=== PATIENT | male | born 1985 | race Caucasian/White ===

== ENCOUNTER 2023-10-06 16:55 | Emergency (ER) | payer SELFPAY ==
[2023-10-06 17:24] VITALS: BP 149/90
[2023-10-06 19:35] VITALS: BMI 27.4
[2023-10-06 19:53] LABS: Urine Albumin Negative (Neg - Trace); Urine Bilirubin Negative (Negative); Urine Character Clear (Clear); Urine Color Yellow; Urine Glucose Negative (Negative); Urine Ketone Negative (Negative); Urine Leukocyte Trace (Negative); Urine Nitrite Negative (Negative); Urine Occult Blood Negative (Negative); Urine Urobilinogen Negative (Neg - 1+); Urine pH 6.5 (5.0-9.0)
--- NOTE | 2023-10-06 20:04 | ED.GENMED ---
History of Present Illness
General
Chief Complaint: Male Genito-Urinary Symptoms
Source: patient
Time Seen by Provider: 10/06/23 17:57
Travel History
Have you had any contact with someone who has COVID-19?: No
Do you have any symptoms of coronavirus? Fever > 100 degrees, chills, cough, shortness of breath, sore throat, loss of taste or smell, muscle aches, or headache?: No
History of Present Illness
History of Present Illness:
38-year-old male with past medical history of hypertension, previous testicular torsion presenting to the emergency department for evaluation of left-sided testicular swelling and pain that started on Monday, acutely worse today prompting him to
come to the ER for further evaluation. Patient denies any urinary symptoms including dysuria, frequency, urgency, hematuria. He denies any scrotal or testicular trauma. He does note that he is sexually active with 1 female partner. Stay has oral
intercourse, vaginal intercourse and oral intercourse. He does not have concern for STI. He denies any vomiting, bowel changes or any other concerns.
Past History
Past History
ED Past Medical History: HTN, Other (Migraines) and Other (Perirectal/buttock abscess)
ED Past Surgical History: None
Social History
Tobacco: Smoker
Alcohol: Occasional
Drug: None
Personal: Single
Living: alone
Employment: Employed
Family History
Family History: Other (non contributory)
Review of Systems
Review of Systems
All Other Systems: ROS reviewed and negative except as documented in HPI and ROS
Phy Exam
Physical Exam
Physical Exam:
GENERAL: Alert , in no apparent distress
EYE: conjunctiva clear
Head: Normocephalic atraumatic
NECK: Supple,
ENT: mmm.
LUNGS: no acute respiratory distress
Genitourinary: Significant edema to the left testicle with tenderness over the epididymis and testicle itself. There appears to be a moderate-sized hydrocele as well. Positive cremasteric reflex bilateral. No hernias appreciated
NEUROLOGICAL: Alert and oriented
SKIN: Warm and dry, skin intact.
MUSCULOSKELETAL: well perfused.
PSYCH: Normal and appropriate interaction.
Scores
Heart Failure Risk
Heart Failure Risk Score: Not Applicable
Heart Score for Chest Pain Patients
STEMI patient?: Not applicable
Withdrawal Assessment of Alcohol
Withdrawal Assessment Completed?: Not applicable
Course
Orders/Labs/Results
Orders:
Orders
10/06/23 17:28
US Scrotum Urgent
Comment:
Reason For Exam: torsion
10/06/23 19:36
Urinalysis Reflex To Culture Urgent
Date Specimen was Collected: 10/06/23
Time Specimen was Collected: 19:32
Urine Microscopic Reflex Cult Urgent
Chlamydia/GC by PCR Urgent
BRAXTON Source: Urine
Specimen Description:
Source:: URINE
Date Specimen was Collected: 10/06/23
Time Specimen was Collected: 19:32
10/06/23 20:05
CefTRIAXone [Rocephin] 500 mg IM NOW STA
LevoFLOXacin [Levaquin] 500 mg PO NOW STA
Abnormal Lab Results
10/06/23
19:36
Leukocyte Esterase Rfl Trace A
(Negative)
Vital Signs
Initial and Last Documented VS:
Initial Vital Signs
Temp Pulse Resp BP Pulse Ox
98.3 F 120 20 149/90 98
10/06/23 17:24 10/06/23 17:24 10/06/23 17:24 10/06/23 17:24 10/06/23 17:24
Last Documented Vital Signs
Temp Pulse Resp BP Pulse Ox
98.3 F 120 20 149/90 98
10/06/23 17:24 10/06/23 17:24 10/06/23 17:24 10/06/23 17:24 10/06/23 17:24
MDM/Problems Addressed
Differential Diagnosis Includes:
Epididymitis, orchiditis, testicular torsion, hydrocele, urinary tract infection, sexually transmitted infection
MDM/Problems Addressed:
38-year-old male present emergency department for evaluation of left-sided testicular edema and pain. History of torsion in the past. Based off exam I feel torsion is less likely and more likely epididymitis versus orchiditis. Patient is adamant
he is only sexually active with 1 female partner. He is at increased risk for urinary tract infection based off of anal intercourse. Will check a scrotal ultrasound in addition to urinalysis as well as GC/chlamydia
*Radiology
Radiology exam reviewed: radiology read reviewed
*Pulse Oximetry
Patient hypoxic: no
*Critical Care Note
Total Time (30-74mins, 75-104mins- exclusive of procedures): Not Applicable
Patient Management
Escalation/DeEscalation of care consider admission/obs:
Ultrasound shows left epididymoorchitis, there is a large complex left hydrocele as well. Based off of the findings we will treat patient with Rocephin 500 mg IM and Levaquin 500 mg p.o. x 10 days. Patient provided with information for urology
outpatient follow-up. Aware of return precautions. Aware that he needs to abstain from intercourse until results of STI testing are known.
ED Attending Note
-
Portions of this chart may have been created with voice recognition software.� Occasional wrong word or��sound alike� substitutions may have occurred due to the inherent limitations of voice recognition software.
Discharge Plan
Departure
Patient Disposition: Home (Routine Discharge)
Date of Disposition: 10/06/23
Time of Disposition: 20:04
Patient with high blood pressure during this ER visit?: No
Discharge Problem:
Epididymo-orchitis, acute, Hydrocele
Instructions: Epididymitis (DC)
Prescriptions:
New
levofloxacin 500 mg tablet
500 mg PO DAILY 9 Days Qty: 9 0RF
No Action
Clindamycin Hcl 300 MG Capsule
300 mg PO QID 10 Days Qty: 40 0RF
Referrals:
NONE,* [Family Provider] -
Marin Boogie Jr., MD [Active] - (Urology)
Interventions
Interventions:
*Risk Screen - Suicide Last Done: 10/06/23 17:24
*General Assessment Last Done: 10/06/23 17:24
*Neglect/Abuse Screening Last Done: 10/06/23 19:35
*ED COVID-19 Vaccine History Last Done: 10/06/23 19:35
ED-Male Genitourinary Assessment Last Done: 10/06/23 19:35
[2023-10-06 20:19] LABS: Urine Bacteria Few (Negative); Urine Red Blood Cell 0-2 /HPF (0-2)
[2023-10-06] MEDS: ROCEPHIN 500 MG IM (20:44)
[2023-10-06] MEDS: LEVAQUIN 500 MG PO (20:44)
[2023-10-06 20:52] VITALS: BP 130/65
== END 2023-10-06 20:56 | disposition home or self-care (01) ==
LOC: EMR 16:55
PROVIDERS: Physician Assistant Medical; EMERGENCY PHYSICIAN Emergency Medicine
DX: N45.3 Epididymo-orchitis (principal); N43.3 Hydrocele, unspecified
CPT/HCPCS: 99284; 96372; 76870; 81003; 81015; 87086; 87491; 87591; 93976

== ENCOUNTER 2023-10-12 10:05 | Emergency (ER) | payer SELFPAY ==
[2023-10-12 10:13] VITALS: BP 154/95
[2023-10-12 10:23] LABS: % Basophils 0.3 % (0-2); % Eosinophils 0.2 % (0-6); % Immature Granulocytes 0.6 % (0-0.5); % Lymphocytes 8.3 % (20.5-51.1); % Monocytes 4.5 % (1.7-9.3); % Neutrophils 86.1 % (42.2-75.2); Absolute Basophils 0.1 10^3/uL (0-0.2); Absolute Immature Granulocytes 0.2 10^3/uL (0-0.05); Absolute Monocytes 1.1 10^3/uL (0.1-0.6); Absolute Neutrophils 20.4 10^3/uL (1.4-6.5); Hematocrit 45.5 % (39.0-52.0); Hemoglobin 15.9 g/dL (13.0-18.0); Mean Corp Hgb Conc. 34.9 g/dL (33.0-37.0); Mean Corpuscular Hgb 30.4 pg (27.0-31.0); Mean Platelet Volume 8.4 fL (7.4-10.4); Nucleated Red Blood Cells % 0 % (-); Platelet Count 414 10^3/uL (130-400); Red Blood Cell Count 5.23 10^6/uL (4.70-6.10); White Blood Cell Count 23.7 10^3/uL (4.8-10.8)
[2023-10-12 10:52] LABS: ALT (SGPT) 24 U/L (0-50); AST (SGOT) 24 U/L (17-59); Albumin 4.3 g/dl (3.5-5.0); Alkaline Phosphatase 100 U/L (38-126); Blood Urea Nitrogen 9 mg/dl (9-20); Calcium 9.3 mg/dl (8.4-10.2); Carbon Dioxide 27 mmol/L (22-30); Chloride 104 mmol/L (98-107); Glucose 102 mg/dl (70-99); Lipase 55 U/L (23-300); Sodium 135 mmol/L (135-145); Total Bilirubin 0.7 mg/dl (0.2-1.3); eGFR > 60.00
[2023-10-12] MEDS: NSS 1000 IV (11:23)
[2023-10-12] MEDS: TORADOL 15 MG IV (11:23)
[2023-10-12 11:24] VITALS: BMI 25.8
--- NOTE | 2023-10-12 11:40 | ED.GENMED ---
History of Present Illness
General
Chief Complaint: Abdominal Pain
Source: patient and spouse
Exam Limitations: none
Time Seen by Provider: 10/12/23 10:50
Nursing documentation reviewed up to this point in time: agreed with
Travel History
Have you had any contact with someone who has COVID-19?: No
Do you have any symptoms of coronavirus? Fever > 100 degrees, chills, cough, shortness of breath, sore throat, loss of taste or smell, muscle aches, or headache?: No
History of Present Illness
History of Present Illness:
38-year-old male with past medical history of anxiety hypertension presenting to the emergency department today with concerns of left lower quadrant abdominal pain worsening over the past 2 days recently was seen and diagnosed with epididymo
orchitis and was started on clindamycin and levofloxacin. He has been taking his medications but has not had significant improvement now he is feeling worsening discomfort into the abdomen. Also had nausea no vomiting. No chest pain shortness of
breath fevers
Past History
Past History
ED Past Medical History: HTN, Other (Migraines) and Other (Perirectal/buttock abscess)
ED Past Surgical History: None
Social History
Tobacco: Smoker
Alcohol: Occasional
Drug: None
Personal: Single
Living: alone
Employment: Employed
Family History
Family History: Other (non contributory)
Review of Systems
Review of Systems
Allergies reviewed?: Yes
All Other Systems: ROS reviewed and negative except as documented in HPI and ROS
Phy Exam
Physical Exam
Physical Exam:
GENERAL: Alert , in no apparent distress
EYE: pupils equal and reactive
NECK: Supple, no significant adenopathy.
ENT: o/p clr, mmm.
CARDIAC: Regular rate and rhythm .
LUNGS: Clear breath sounds bilaterally, no acute respiratory distress, no wheezes/rales/rhonchi
ABDOMEN: Tender palpation to the left lower abdomen otherwise soft, without focal tenderness, no r/g, no cvat, scrotal examination with swelling and discomfort to the left scrotum
NEUROLOGICAL: Alert and oriented, no focal neuro deficits
SKIN: Warm and dry, skin intact.
MUSCULOSKELETAL: No edema, well perfused.
PSYCH: Normal and appropriate interaction.
Course
Orders/Labs/Results
Orders:
Orders
10/12/23 10:18
Complete Blood Count/With Diff Urgent
Comprehensive Metabolic Panel Urgent
Lipase Urgent
10/12/23 11:01
0.9% Sodium Chloride 1000 ml [Nss] 1,000 ml IV BOLUS
Ketorolac [Toradol] 15 mg IV NOW STA
10/12/23 11:02
CT Abd/Pel (IV only)-DH only Urgent
Comment:
Reason For Exam: llq pain, recent epididymitis
10/12/23 11:27
Lactic Acid Urgent
10/12/23 13:07
Urinalysis Reflex To Culture Urgent
Date Specimen was Collected: 10/12/23
Time Specimen was Collected: 13:04
Abnormal Lab Results
10/12/23
10:18
WBC 23.7 H 10^3/uL
(4.8-10.8)
Plt Count 414 H 10^3/uL
(130-400)
Abs Immat Gran (auto) 0.2 H 10^3/uL
(0-0.05)
Absolute Neuts (auto) 20.4 H 10^3/uL
(1.4-6.5)
Absolute Monos (auto) 1.1 H 10^3/uL
(0.1-0.6)
Immature Gran % 0.6 H %
(0-0.5)
Neutrophils % 86.1 H %
(42.2-75.2)
Lymphocytes % 8.3 L %
(20.5-51.1)
Glucose 102 H mg/dl
(70-99)
10/12/23 10:18
10/12/23 10:18
Vital Signs
Initial and Last Documented VS:
Initial Vital Signs
Temp Pulse Resp BP Pulse Ox
98.6 F 132 18 154/95 99
10/12/23 10:13 10/12/23 10:13 10/12/23 10:13 10/12/23 10:13 10/12/23 10:13
Last Documented Vital Signs
Temp Pulse Resp BP Pulse Ox
98.6 F 70 18 125/81 99
10/12/23 10:13 10/12/23 14:09 10/12/23 10:13 10/12/23 14:09 10/12/23 10:13
MDM/Problems Addressed
MDM/Problems Addressed:
38-year-old male presenting to the emergency department today with concerns of left-sided lower abdominal pain worsening over the past few days recently diagnosed with epididymoorchitis. Plan for CT scan for further assessment. Otherwise patient
tachycardic upon arrival was given fluids labs showing white blood cell count of 23.7 remainder of labs unremarkable.. Heart rate initially elevated but improving to 70 with normal blood pressure after receiving pain medication and fluids.
Urinalysis normal CT scan without emergent findings in the CT scan hydrocele seen on scrotal imaging. Physical assessment of the scrotum with normal overlying skin no redness or warmth no significant tenderness to palpation no evidence of worsening
infection to the region. Patient claims subjectively that symptoms have improved to the area. Concerning this does not appear to be any emergent process at this time he was advised for close outpatient follow-up return precautions given.
*Critical Care Note
Total Time (30-74mins, 75-104mins- exclusive of procedures): Not Applicable
ED Attending Note
-
Portions of this chart may have been created with voice recognition software.� Occasional wrong word or��sound alike� substitutions may have occurred due to the inherent limitations of voice recognition software.
Discharge Plan
Departure
Patient Disposition: Home (Routine Discharge)
Date of Disposition: 10/12/23
Time of Disposition: 14:23
Patient with high blood pressure during this ER visit?: No
Condition: Good
Covid-19: Not Applicable
Discharge Problem:
Abdominal pain
Instructions: Abdominal Pain
Prescriptions:
No Action
Clindamycin Hcl 300 MG Capsule
300 mg PO QID 10 Days Qty: 40 0RF
levofloxacin 500 mg tablet
500 mg PO DAILY 9 Days Qty: 9 0RF
Referrals:
NONE,* [Family Provider] -
Marin Boogie Jr., MD [Active] - Follow up in 1 week
Activity Restrictions/Additional Instructions:
You came to the emergency department today with concerns of left lower quadrant abdominal pain. Here you had a CT scan without emergent findings. Please follow closely with urology and return to the emergency department for any worsening, new or
concerning symptoms.
Interventions
Interventions:
*Risk Screen - Suicide Last Done: 10/12/23 10:13
*General Assessment Last Done: 10/12/23 10:13
*Neglect/Abuse Screening Last Done: 10/12/23 10:13
ED- Fall Risk Assessment Last Done: 10/12/23 11:25
*ED COVID-19 Vaccine History Last Done: 10/12/23 10:13
NS-Wrjgpe-Nwwprkcvwv Assessment Last Done: 10/12/23 11:25
[2023-10-12 11:57] LABS: Lactic Acid 1.3 mmol/L (0.7-2.0)
[2023-10-12 13:15] LABS: Urine Albumin Negative (Neg - Trace); Urine Bilirubin Negative (Negative); Urine Character Clear (Clear); Urine Color Yellow; Urine Glucose Negative (Negative); Urine Ketone Negative (Negative); Urine Leukocyte Negative (Negative); Urine Nitrite Negative (Negative); Urine Occult Blood Negative (Negative); Urine Specific Gravity 1.005 (<1.030); Urine Urobilinogen Negative (Neg - 1+)
[2023-10-12 14:09] VITALS: BP 125/81
== END 2023-10-12 14:31 | disposition home or self-care (01) ==
LOC: EMR 10:05
PROVIDERS: Physician Assistant; EMERGENCY PHYSICIAN Emergency Medicine
DX: R10.32 Left lower quadrant pain (principal); I10 Essential (primary) hypertension; F41.9 Anxiety disorder, unspecified; F17.200 Nicotine dependence, unspecified, uncomplicated
CPT/HCPCS: 99285; 96374; 96361; 74177; 80053; 81003; 83605; 83690; 85025; Q9967

== ENCOUNTER 2024-10-14 23:35 | Emergency (ER) | payer SELFPAY ==
[2024-10-14 23:42] VITALS: BP 168/117
--- NOTE | 2024-10-15 00:19 | ED.GENMED ---
History of Present Illness
General
Chief Complaint: Back Pain
Source: patient
Exam Limitations: none
Time Seen by Provider: 10/14/24 23:55
Nursing documentation reviewed up to this point in time: agreed with
History of Present Illness
History of Present Illness:
Patient is a 39-year-old male who presents to the ER for evaluation of headache. Patient reports he started with neck pain /upper back into his head 2 days ago. He has had this multiple times in the past. He reports he starts to get muscle
tightness which causes him to get a headache. He does have a history of migraines and reports this is consistent with a similar migraines. He does get light sensitive with this. He has vomited at home with this today. He denies any associate
illness fever chills. No relief with ibuprofen. He denies any injury. He is not on blood thinners.
He reports he has gone to an ER in the past and was given IV medicine and has resolved. He has no formal diagnosis of migraines but does get this very often.
Past History
Past History
ED Past Medical History: HTN, Other (Migraines) and Other (Perirectal/buttock abscess)
ED Past Surgical History: None
Social History
Tobacco: Smoker
Alcohol: Occasional
Drug: None
Personal: Single
Living: alone
Employment: Employed
Family History
Family History: Other (non contributory)
Review of Systems
Review of Systems
Allergies reviewed?: Yes
All Other Systems: ROS reviewed and negative except as documented in HPI and ROS
Constitutional: Reports no symptoms
EENT: Reports other (light sensitive )
Respiratory: Reports no symptoms
Cardiac: Reports no symptoms
ABD/GI: Reports nausea and vomiting
Musculoskeletal: Reports neck pain
Skin: Reports no symptoms
Neurological: Reports headache
Psychiatric: Reports no symptoms
Phy Exam
General Physical Exam
General Presentation: no apparent distress
General age: appears stated age
General Skin: warm and dry
General Habitus: normal
General Mental: alert
General Hydration: appears well hydrated
ENT Exam
ENT Exam: EOMI and neck supple
Eye Exam
Eye Exam: PERRL and EOMI
Eye Exam General: PERRL: bilateral and EOM intact: bilateral
Pupil Exam: Bilateral: round and reactive
Cardiovascular Exam
Cardiovascular Exam: regular rate/rhythm, no murmur and normal peripheral pulses
Neurological Exam
Neurological Exam: alert, oriented x3, no motor deficits, no sensory deficits and speech normal
Musculoskeletal Exam
Musculoskeletal Exam: full ROM and other ( full rom to neck no midline tenderness )
Skin Exam
Skin Exam: normal color and warm/dry
Psychiatric Exam
Psychiatric Exam: normal mood/affect
Course
Orders/Labs/Results
Orders:
Orders
10/15/24 00:19
Diphenhydramine [Benadryl] 25 mg IV NOW STA
Ketorolac [Toradol] 15 mg IV NOW STA
Metoclopramide [Reglan] 10 mg IM NOW STA
10/15/24 00:20
0.9% Sodium Chloride 1000 ml [Nss] 1,000 ml IV BOLUS
10/15/24 01:55
Vital Signs- Treatment ONCE
Frequency: Once
Vital Signs
Initial and Last Documented VS:
Initial Vital Signs
Temp Pulse Resp BP Pulse Ox
97.4 F 86 26 168/117 96
10/14/24 23:42 10/14/24 23:42 10/14/24 23:42 10/14/24 23:42 10/14/24 23:42
Last Documented Vital Signs
Temp Pulse Resp BP Pulse Ox
97.4 F 86 26 168/117 96
10/14/24 23:42 10/14/24 23:42 10/14/24 23:42 10/14/24 23:42 10/14/24 23:42
MDM/Problems Addressed
MDM/Problems Addressed:
Patient is a 39 yr old male who reports he has had frequent headaches migraines in the past and presents for similar complaint. He reports this migraine is similar to his migraines in the past. He has had this for the past several days. Patient
presents awake alert no acute distress; denies any fevers is afebrile here. Patient has a normal neurologic exam patient medicated feeling better stable for discharge home
Chronic conditions affecting care:
hx of migraines htn
*Critical Care Note
Total Time (30-74mins, 75-104mins- exclusive of procedures): Not Applicable
ED Attending Note
-
Portions of this chart may have been created with voice recognition software.� Occasional wrong word or��sound alike� substitutions may have occurred due to the inherent limitations of voice recognition software.
Discharge Plan
Departure
Patient Disposition: Home (Routine Discharge)
Date of Disposition: 10/15/24
Time of Disposition: 01:56
Patient with high blood pressure during this ER visit?: Yes
Condition: Fair
Covid-19: Not Applicable
Discharge Problem:
Migraine
Instructions: Migraine in adults, BLOOD PRESSURE
Prescriptions:
No Action
Clindamycin Hcl 300 MG Capsule
300 mg PO QID 10 Days Qty: 40 0RF
levofloxacin 500 mg tablet
500 mg PO DAILY 9 Days Qty: 9 0RF
Referrals:
NONE,* [Family Provider] -
Activity Restrictions/Additional Instructions:
You may take ibuprofen as needed for headaches. follow-up with family doctor in next several days.
return if any worsening of symptoms
Interventions
Interventions:
*Risk Screen - Suicide Last Done: 10/15/24 00:00
*General Assessment Last Done: 10/15/24 00:00
*Neglect/Abuse Screening Last Done: 10/15/24 00:00
*ED- Fall Risk Assessment Last Done: 10/15/24 00:00
ED-Musculoskeletal Assessment Last Done: 10/15/24 00:00
Discharge Date and Time
Print Language: TURKISH
[2024-10-15] MEDS: NSS 1000 IV (00:36)
[2024-10-15] MEDS: BENADRYL 25 MG IV (00:37)
[2024-10-15] MEDS: TORADOL 15 MG IV (00:37)
[2024-10-15] MEDS: REGLAN 10 MG IM (00:42)
[2024-10-15 01:57] VITALS: BP 133/82
== END 2024-10-15 02:10 | disposition home or self-care (01) ==
LOC: EMR 23:35
PROVIDERS: EMERGENCY PHYSICIAN Student in an Organized Health Care Education/Training Program
DX: G43.909 Migraine, unspecified, not intractable, without status migrainosus (principal); F17.200 Nicotine dependence, unspecified, uncomplicated; I10 Essential (primary) hypertension
CPT/HCPCS: 96374; 96375; 96372; 96361; 99284